=== PATIENT | female | born 1985 | race Caucasian/White ===

== ENCOUNTER 2016-11-05 17:10 | Emergency (ER) | payer BC, OTHER ==
[2016-11-05 17:19] VITALS: BP 136/95; PULSE 86; RESP 18; TEMP 98.2; O2SAT 99
[2016-11-05 18:06] LABS: BASO # 0.1 K/uL (0.0-0.2); EOS # 0.2 K/uL (0.0-0.7); EOS % 2.5 % (0.0-4.0); HEMATOCRIT 40.6 % (34.0-47.0); LYMPH # 2.7 K/uL (1.0-4.3); LYMPH % 27.1 % (20.0-40.0); MEAN CORPUSCULAR HEMOGLOBIN 30.8 pg (27.0-31.0); MEAN CORPUSCULAR HGB CONC 32.9 g/dL (33.0-37.0); MEAN PLATELET VOLUME 9.2 fl (7.2-11.7); MONO # 0.6 K/uL (0.0-0.8); MONO % 6.4 % (0.0-10.0); NEUT # 6.3 K/uL (1.8-7.0); NRBC % 0.1 % (0.0-0.0); RED CELL DISTRIBUTION WIDTH 12.8 % (11.5-14.5); WHITE BLOOD COUNT 9.9 K/uL (4.8-10.8)
[2016-11-05 18:09] LABS: MEAN CELL VOLUME 93.8 fl (81.0-99.0)
--- NOTE | 2016-11-05 18:09 | ED PDOC ---
HPI: General Adult Time Seen by Provider: 11/05/16 17:10 Chief Complaint (Nursing): Breast Problem Chief Complaint (Provider): Breast Problem History Per: Patient History/Exam Limitations: no limitations Onset/Duration Of Symptoms: Days (x2) Current Symptoms Are (Timing): Still Present Additional Complaint(s): Ailyn Archer is a 30 year old female with previous surgical history of silicon breast augmentation 4 years ago, who presents to the emergency department with a complaint of acute left breast swelling ongoing for 2 days. Denied redness, fever or chills. PMD: Claus Velásquez MD Past Medical History Reviewed: Historical Data, Nursing Documentation, Vital Signs Vital Signs: Last Vital Signs Temp 98.2 F 11/05/16 17:16 Pulse 86 11/05/16 17:16 Resp 18 11/05/16 17:16 BP 136/95 H 11/05/16 17:16 Pulse Ox 99 11/05/16 18:52 - Medical History PMH: Asthma - Surgical History Surgical History: Cholecystectomy - Family History Family History: States: No Known Family Hx - Social History Current smoker - smoking cessation education provided: No Alcohol: Occasional Drugs: Denies - Home Medications Home Medications: Ambulatory Orders Medication Instructions Recorded Albuterol HFA [Ventolin HFA 90 2 inh INH PRN PRN 07/28/14 mcg/actuation (8 g)] Amoxicillin/Clavulanate [Augmentin 1 tab PO BID #20 tab 07/28/14 875 MG-125 MG] Ciprofloxacin HCl/Dexameth 7.5 ml OT BID #1 felicitas 07/28/14 [Ciprodex 0.3%-0.1% 7.5 ml] Acetaminophen with Codeine 1 tab PO Q6 PRN #12 tab 08/21/14 [Tylenol with Codeine No. 3 300 mg-30 mg] Ciprofloxacin/Dexamethasone 4 drop TOP BID #1 bottle 08/21/14 [Ciprodex Otic] Ibuprofen [Motrin] 600 mg PO Q6H PRN #15 tab 08/21/14 - Allergies Allergies/Adverse Reactions: Allergies Allergy/AdvReac Type Severity Reaction Status Date / Time shellfish derived Allergy Mild RASH Verified 06/06/15 14:02 Review of Systems ROS Statement: Except As Marked, All Systems Reviewed And Found Negative Constitutional: Negative for: Fever, Chills Cardiovascular: Positive for: Edema (left breast). Negative for: Other (redness ) Physical Exam - Reviewed Nursing Documentation Reviewed: Yes - Physical Exam Appears: Positive for: Well, Non-toxic, No Acute Distress Head Exam: Positive for: ATRAUMATIC, NORMAL INSPECTION, NORMOCEPHALIC Cardiovascular/Chest: Positive for: Regular Rate, Rhythm, Edema (generalized moderate swelling/fullness to left breast). Negative for: Chest Non Tender, Other (erythema ) Respiratory: Positive for: Normal Breath Sounds. Negative for: Decreased Breath Sounds, Crackles, Rales, Rhonchi, Wheezing, Respiratory Distress Gastrointestinal/Abdominal: Positive for: Normal Exam, Bowel Sounds, Soft. 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 LOJA. Medical Decision Making Medical Decision Making: Initial Impression: Breast swelling Initial Plan: * BMP * CBC * US breast (left) Scribe Attestation: Documented by Rakel Glynn, acting as a scribe for Carlos Guadarrama PA-C. Provider Scribe Attestation: All medical record entries made by the Scribe were at my direction and personally dictated by me. I have reviewed the chart and agree that the record accurately reflects my personal performance of the history, physical exam, medical decision making, and the department course for this patient. I have also personally directed, reviewed, and agree with the discharge instructions and disposition. Disposition - Clinical Impression Clinical Impression: Breast swelling - Patient ED Disposition Is Patient to be Admitted: No - Disposition Referrals: Ap Rodriguez MD [Staff Provider] - Disposition: Routine/Home Disposition Time: 18:48 Condition: FAIR Instructions: Breast Self Exam for Women (ED) Forms: [employer] (Bahraini)
[2016-11-05 18:15] LABS: BLOOD UREA NITROGEN 11 mg/dl (7-17); CARBON DIOXIDE 26 mmol/L (22-30); CHLORIDE 104 mmol/L (98-107); GFR AFRICAN-AMERICAN > 60; GLUCOSE,RANDOM 89 mg/dL (65-105); SODIUM 141 mmol/l (132-148)
[2016-11-05 18:17] LABS: POTASSIUM 4.2 MMOL/L (3.6-5.0)
--- NOTE | 2016-11-06 09:11 | US ---
HISTORY: TECHNIQUE: Sonographic evaluation of both breast was performed. FINDINGS: LEFT BREAST: Cyst(s): None Breast mass: None Dilated ducts: None Parenchymal distortion: None Skin thickening or subcutaneous abnormalities: None Incompletely visualized saline implant. IMPRESSION: No sonographic evidence of malignancy. No evidence of breast mass or other infectious/ inflammatory findings. BIRADS: BIRADS 1 (negative) Recommendation: Patient management should be based on findings on physical examination in the absence of either ultrasound and/or mammographic correlate.
== END 2016-11-05 19:19 | disposition home or self-care (01) ==
LOC: H.ER 17:10
DX: N64.9 Disorder of breast, unspecified (principal)

== ENCOUNTER 2016-12-27 14:57 | Emergency (ER) | payer BC, OTHER ==
[2016-12-27 15:04] VITALS: BP 131/85; PULSE 90; RESP 18; TEMP 97.9; O2SAT 99
[2016-12-27] MEDS ORDERED: DiphenhydrAMINE 50 mg/ml Inj IVP STA (15:22)
[2016-12-27] MEDS ORDERED: Sodium Chloride 0.9% 1,000 ML IV STA (15:24)
--- NOTE | 2016-12-27 15:32 | ED PDOC ---
HPI: Allergic Reaction Time Seen by Provider: 12/27/16 15:12 Chief Complaint (Nursing): Allergic Reaction Chief Complaint (Provider): hives History Per: Patient Onset/Duration Of Symptoms: Days (5), Persistent Current Symptoms Are (Timing): Still Present Possible Cause: Unknown Associated Symptoms: Skin Rash, Swelling, Redness, Chest Pain Home/EMS Treatment: Benadryl, Steroids, H2 Blockers Additional Complaint(s): Rash to entire body. Started on LEFT foot Monday and progressed. Areas on buttocks most severe associated with burning and heat. Seen at [facility] and started on methylprednisone tapering pack, vistaril with no relief. Recently had bilateral breast implant removal, drains were removed on Monday. Reports taking pain rx'd medication that day but stopped since developing the rash. Also taking benadryl and pepcid. Visit building wrecker yesterday but told results of blood test unavailable for 2 weeks. No additional meds started by building wrecker PMD Dr Morris Past Medical History Reviewed: Historical Data, Nursing Documentation, Vital Signs Vital Signs: Last Vital Signs Temp 97.9 F 12/27/16 15:02 Pulse 90 12/27/16 15:02 Resp 18 12/27/16 15:02 BP 131/85 12/27/16 15:02 Pulse Ox 99 12/27/16 15:02 - Medical History PMH: Asthma - Surgical History Surgical History: Cholecystectomy Other surgeries: Breast augmentation, breast implant resection - Family History Family History: States: CAD, Hypertension, Other Other Family History: Thyroid cancer - Social History Current smoker - smoking cessation education provided: No - Home Medications Home Medications: Ambulatory Orders Medication Instructions Recorded Albuterol HFA [Ventolin HFA 90 2 inh INH PRN PRN 07/28/14 mcg/actuation (8 g)] Amoxicillin/Clavulanate [Augmentin 1 tab PO BID #20 tab 07/28/14 875 MG-125 MG] Ciprofloxacin HCl/Dexameth 7.5 ml OT BID #1 felicitas 07/28/14 [Ciprodex 0.3%-0.1% 7.5 ml] Acetaminophen with Codeine 1 tab PO Q6 PRN #12 tab 08/21/14 [Tylenol with Codeine No. 3 300 mg-30 mg] Ciprofloxacin/Dexamethasone 4 drop TOP BID #1 bottle 08/21/14 [Ciprodex Otic] Ibuprofen [Motrin] 600 mg PO Q6H PRN #15 tab 08/21/14 Famotidine [Pepcid] 40 mg PO DAILY PRN #14 tab 12/27/16 Fexofenadine HCl [FabioNf] 180 mg PO DAILY #14 tab 12/27/16 Montelukast [Singulair] 10 mg PO DAILY #14 tab 12/27/16 Prednisone 50 mg PO DAILY #4 tablet 12/27/16 - Allergies Allergies/Adverse Reactions: Allergies Allergy/AdvReac Type Severity Reaction Status Date / Time shellfish derived Allergy Mild RASH Verified 06/06/15 14:02 Review of Systems ROS Statement: Except As Marked, All Systems Reviewed And Found Negative (and as per HPI) Constitutional: Negative for: Fever, Chills Cardiovascular: Positive for: Chest Pain Respiratory: Negative for: Shortness of Breath Skin: Positive for: Rash Physical Exam - Reviewed Nursing Documentation Reviewed: Yes Vital Signs Reviewed: Yes - Physical Exam Appears: Positive for: Uncomfortable, In Acute Distress Head Exam: Positive for: ATRAUMATIC Skin: Positive for: Warm, Rash (multiple wheals to entire body, large areas of confluence on bilateraly buttocks) Eye Exam: Positive for: EOMI, PERRL ENT: Positive for: Pharynx Is (clear). Negative for: Tonsillar Exudate, Tonsillar Swelling Neck: Positive for: Painless ROM, Supple Cardiovascular/Chest: Positive for: Regular Rate, Rhythm. Negative for: Murmur Respiratory: Positive for: Normal Breath Sounds. Negative for: Wheezing, Respiratory Distress Gastrointestinal/Abdominal: Positive for: Soft. Negative for: Tenderness Back: Positive for: Normal Inspection. Negative for: Decreased ROM Extremity: Positive for: Normal ROM. Negative for: Deformity Lymphatic: Negative for: Adenopathy Neurologic/Psych: Positive for: Alert. Negative for: Motor/Sensory Deficits - Laboratory Results Result Diagrams: 12/27/16 16:00 12/27/16 16:00 - ECG O2 Sat by Pulse Oximetry: 99 Disposition - Clinical Impression Clinical Impression: Hives Counseled Patient/Family Regarding: Studies Performed, Diagnosis, Need For Followup, Rx Given - Disposition Referrals: [facility] [Outside] Disposition: Routine/Home Disposition Time: 18:00 Condition: IMPROVED Additional Instructions: FOLLOW UP WITH YOUR UMBRELLA FINISHER SCHEDULED. STOP TAKING METHYLPREDNISOLONE TABLETS. CONTINUE HYDROXYZINE PRESCRIBED. START FABIO, PEPCID, PREDNISONE AND SINGULAIR PRESCRIBED. Prescriptions: Famotidine [Pepcid] 40 mg PO DAILY PRN #14 tab PRN Reason: reflux Fexofenadine HCl [FabioNf] 180 mg PO DAILY #14 tab Montelukast [Singulair] 10 mg PO DAILY #14 tab Prednisone 50 mg PO DAILY #4 tablet Instructions: Urticaria (ED) Forms: [employer] (Wallisian)
[2016-12-27] MEDS ORDERED: DiphenhydrAMINE 50 mg/ml Inj ONE (15:57)
[2016-12-27 16:07] LABS: BASO % 0.3 % (0.0-2.0); HEMATOCRIT 36.7 % (34.0-47.0); LYMPH # 1.8 K/uL (1.0-4.3); MEAN CELL VOLUME 91.6 fl (81.0-99.0); MEAN CORPUSCULAR HEMOGLOBIN 30.4 pg (27.0-31.0); MEAN CORPUSCULAR HGB CONC 33.1 g/dL (33.0-37.0); MONO # 0.7 K/uL (0.0-0.8); MONO % 4.6 % (0.0-10.0); NEUT # 12.3 K/uL (1.8-7.0); NEUT % 83.1 % (50.0-75.0); WHITE BLOOD COUNT 14.8 K/uL (4.8-10.8)
[2016-12-27 16:35] LABS: ALB/GLOB RATIO 1.2 (1.0-2.1); ALKALINE PHOSPHATASE 82 U/L (38-126); ALT/SGPT 60 U/L (9-52); AST/SGOT 34 U/L (14-36); BILIRUBIN,TOTAL 0.2 mg/dl (0.2-1.3); BLOOD UREA NITROGEN 17 mg/dl (7-17); CALCIUM 8.9 mg/dL (8.4-10.2); CARBON DIOXIDE 26 mmol/L (22-30); CHLORIDE 105 mmol/L (98-107); GFR AFRICAN-AMERICAN > 60; GLUCOSE,RANDOM 108 mg/dL (65-105); PHOSPHOROUS 3.9 mg/dl (2.5-4.5); POTASSIUM 3.8 MMOL/L (3.6-5.0); SODIUM 143 mmol/l (132-148); TOTAL PROTEIN 7.7 G/DL (6.3-8.2)
[2016-12-27 16:48] LABS: PARTIAL THROMBOPLASTIN TIME 33.4 Seconds (25.6-37.1)
--- NOTE | 2016-12-27 17:21 | RAD ---
HISTORY: chest pain COMPARISON: 06/06/2015 TECHNIQUE: Chest PA and lateral FINDINGS: LUNGS: No active pulmonary disease. PLEURA: No significant pleural effusion identified. No pneumothorax apparent. CARDIOVASCULAR: Normal. OSSEOUS STRUCTURES: No significant abnormalities. VISUALIZED UPPER ABDOMEN: Normal. OTHER FINDINGS: None. IMPRESSION: No active disease. No significant interval change compared to the prior examination(s). Please note: No preliminary interpretation of this examination rendered by emergency department personnel (Physician and/or PA declined to provide preliminary report of their findings/ observations).
--- NOTE | 2016-12-28 12:57 | CARD ---
APPROVED REPORT EKG Measurement Heart [id number] <Conclusion> Normal sinus rhythm Normal ECG
== END 2016-12-27 18:20 | disposition home or self-care (01) ==
LOC: H.ER 14:57
DX: T78.40XA Allergy, unspecified, initial encounter (principal); L50.0 Allergic urticaria; J45.909 Unspecified asthma, uncomplicated; R07.89 Other chest pain
CPT/HCPCS: 71020; 80053; 81025; 82550; 83605; 83735; 84100; 85025; 85610; 85730; 87040; 93005; 96374; 96375; 99283; J1200; J2930; J7040

== ENCOUNTER 2017-03-20 23:09 | Emergency (ER) | payer BC, OTHER ==
[2017-03-20 23:14] VITALS: TEMP 98.9; O2SAT 100
[2017-03-21] MEDS ORDERED: Sodium Chloride 0.9% 500 ML IV STA (00:10)
--- NOTE | 2017-03-21 00:15 | ED PDOC ---
HPI: Headache Time Seen by Provider: 03/21/17 00:12 Chief Complaint (Nursing): Headache Chief Complaint (Provider): headache History Per: Patient History/Exam Limitations: no limitations Onset/Duration Of Symptoms: Hrs Current Symptoms Are (Timing): Still Present Quality: "Pain" Additional History Per: Patient Additional Complaint(s): 31 y/o female presents with headache x 3 hours. Patient states she checked her blood pressure at that time and it was 157/109. Patient states she then started developing palpitations, which prompted her to call 911. Denies fever, dizziness, vision changes, extremity numbness/weakness, chest pain, shortness of breath, nausea/vomiting, abdominal pain, leg pain/swelling, recent travel, sick contacts. Past Medical History Reviewed: Historical Data, Nursing Documentation, Vital Signs Vital Signs: Last Vital Signs Temp 98.9 F 03/20/17 23:10 Pulse 95 H 03/21/17 00:08 Resp 13 03/21/17 00:08 BP 166/77 H 03/21/17 00:08 Pulse Ox 100 03/21/17 00:08 - Medical History PMH: Asthma, Hyperthyroidism - Surgical History Surgical History: Cholecystectomy - Family History Family History: States: CAD, Hypertension - Social History Current smoker - smoking cessation education provided: No - Home Medications Home Medications: Ambulatory Orders Medication Instructions Recorded Albuterol HFA [Ventolin HFA 90 2 inh INH PRN PRN 07/28/14 mcg/actuation (8 g)] Amoxicillin/Clavulanate [Augmentin 1 tab PO BID #20 tab 07/28/14 875 MG-125 MG] Ciprofloxacin HCl/Dexameth 7.5 ml OT BID #1 felicitas 07/28/14 [Ciprodex 0.3%-0.1% 7.5 ml] Acetaminophen with Codeine 1 tab PO Q6 PRN #12 tab 08/21/14 [Tylenol with Codeine No. 3 300 mg-30 mg] Ciprofloxacin/Dexamethasone 4 drop TOP BID #1 bottle 08/21/14 [Ciprodex Otic] Ibuprofen [Motrin] 600 mg PO Q6H PRN #15 tab 08/21/14 Famotidine [Pepcid] 40 mg PO DAILY PRN #14 tab 12/27/16 Fexofenadine HCl [NgaNf] 180 mg PO DAILY #14 tab 12/27/16 Montelukast [Singulair] 10 mg PO DAILY #14 tab 12/27/16 Prednisone 50 mg PO DAILY #4 tablet 12/27/16 - Allergies Allergies/Adverse Reactions: Allergies Allergy/AdvReac Type Severity Reaction Status Date / Time shellfish derived Allergy Mild RASH Verified 06/06/15 14:02 Review of Systems ROS Statement: Except As Marked, All Systems Reviewed And Found Negative Cardiovascular: Positive for: Palpitations Neurological: Positive for: Headache Physical Exam - Reviewed Nursing Documentation Reviewed: Yes Vital Signs Reviewed: Yes - Physical Exam Appears: Positive for: Well, Non-toxic, No Acute Distress Head Exam: Positive for: ATRAUMATIC, NORMAL INSPECTION, NORMOCEPHALIC Skin: Positive for: Normal Color Eye Exam: Positive for: Normal appearance, EOMI, PERRL ENT: Positive for: Normal ENT Inspection Cardiovascular/Chest: Positive for: Regular Rate, Rhythm Respiratory: Positive for: Normal Breath Sounds Gastrointestinal/Abdominal: Positive for: Normal Exam Back: Positive for: Normal Inspection Extremity: Positive for: Normal ROM Neurologic/Psych: Positive for: Alert, Oriented - Laboratory Results Result Diagrams: 03/21/17 01:15 03/21/17 01:15 - ECG ECG: Positive for: Viewed By Me (reviewed by ED attending) ECG Rhythm: Positive for: Sinus Rhythm O2 Sat by Pulse Oximetry: 100 - Progress ED Course And Treament: labs, ekg, CT head, Tylenol PO EXAM: CT Head Without Intravenous Contrast CLINICAL HISTORY: 31 years old, female; Pain; Headache TECHNIQUE: Axial computed tomography images of the head/brain without intravenous contrast. All CT scans at this facility use one or more dose reduction techniques, viz.: automated exposure control; ma/kV adjustment per patient size (including targeted exams where dose is matched to indication; i.e. head); or iterative reconstruction technique. Coronal and sagittal reformatted images were created and reviewed. COMPARISON: No relevant prior studies available. FINDINGS: Brain: Unremarkable. No hemorrhage. No significant white matter disease. No edema. Ventricles: Unremarkable. No ventriculomegaly. Bones/joints: Unremarkable. No acute fracture. Soft tissues: Unremarkable. Sinuses: Unremarkable as visualized. No acute sinusitis. Mastoid air cells: Unremarkable as visualized. No mastoid effusion. IMPRESSION: No evidence of an acute intracranial abnormality. On re-eval, patient states she is feeling better. Patient educated on findings, discharged with instructions to follow up PMD 2-3 days. Tylenol/Ibuprofen PRN pain. Return precautions given. Disposition - Clinical Impression Clinical Impression: Headache, Palpitations - Patient ED Disposition Is Patient to be Admitted: No Counseled Patient/Family Regarding: Studies Performed, Diagnosis, Need For Followup - Disposition Disposition: Routine/Home Disposition Time: 03:03 Condition: IMPROVED Instructions: Palpitations (ED), Acute Headache (ED) Forms: [employer] (Bulgarian)
[2017-03-21 01:17] LABS: BASO # 0.1 K/uL (0.0-0.2); BASO % 0.9 % (0.0-2.0); EOS # 0.2 K/uL (0.0-0.7); EOS % 1.6 % (0.0-4.0); HEMOGLOBIN 13.3 g/dL (12.0-16.0); LYMPH # 2.8 K/uL (1.0-4.3); MEAN CELL VOLUME 90.9 fl (81.0-99.0); MEAN CORPUSCULAR HEMOGLOBIN 29.9 pg (27.0-31.0); MEAN PLATELET VOLUME 8.5 fl (7.2-11.7); MONO # 0.5 K/uL (0.0-0.8); MONO % 5.1 % (0.0-10.0); NEUT # 7.1 K/uL (1.8-7.0); NEUT % 66.4 % (50.0-75.0); NRBC % 0.1 % (0.0-0.0); RBC 4.44 Mil/uL (3.80-5.20); RED CELL DISTRIBUTION WIDTH 13.3 % (11.5-14.5); WHITE BLOOD COUNT 10.6 K/uL (4.8-10.8)
[2017-03-21 01:25] LABS: ALBUMIN 4.8 g/dL (3.5-5.0); ALT/SGPT 59 U/L (9-52); AST/SGOT 32 U/L (14-36); BLOOD UREA NITROGEN 11 mg/dl (7-17); CALCIUM 9.7 mg/dL (8.4-10.2); GFR AFRICAN-AMERICAN > 60; GFR NON-AFRICAN AMERICAN > 60
[2017-03-21 01:31] LABS: ALB/GLOB RATIO 1.2 (1.0-2.1)
[2017-03-21 02:59] VITALS: PULSE 86
[2017-03-21 03:48] VITALS: BP 122/58; RESP 15
--- NOTE | 2017-03-21 09:29 | CT ---
PROCEDURE: CT HEAD WITHOUT CONTRAST. HISTORY: headache COMPARISON: None available. TECHNIQUE: Axial computed tomography images were obtained through the head/brain without intravenous contrast. Radiation dose: Total exam DLP = pacs 849.75 mGy-cm. This CT exam was performed using one or more of the following dose reduction techniques: Automated exposure control, adjustment of the mA and/or kV according to patient size, and/or use of iterative reconstruction technique. FINDINGS: HEMORRHAGE: No intracranial hemorrhage. BRAIN: No mass effect or edema. No atrophy or chronic microvascular ischemic changes. VENTRICLES: Unremarkable. No hydrocephalus. CALVARIUM: Unremarkable. PARANASAL SINUSES: Unremarkable as visualized. No significant inflammatory changes. MASTOID AIR CELLS: Unremarkable as visualized. No inflammatory changes. OTHER FINDINGS: None. IMPRESSION: No acute intracranial abnormalities. No significant findings to account for the clinical presentation. Concordant results (preliminary interpretation) provided by [facility]. Procedure Completed: 00:32 Preliminary ([facility]) Report: Dictated and Authenticated: 00:52 Final Interpretation: 09:27 2017.
--- NOTE | 2017-03-22 11:20 | CARD ---
APPROVED REPORT EKG Measurement Heart [id number] <Conclusion> Normal sinus rhythm Possible Left atrial enlargement Borderline ECG
== END 2017-03-21 04:16 | disposition home or self-care (01) ==
LOC: H.ER 23:09
DX: R00.2 Palpitations (principal); R51 Headache; E05.90 Thyrotoxicosis, unspecified without thyrotoxic crisis or storm; J45.909 Unspecified asthma, uncomplicated; Z82.49 Family history of ischemic heart disease and other diseases of the circulatory system
CPT/HCPCS: 70450; 80053; 84443; 84484; 85025; 93005; 99285; J7040

== ENCOUNTER 2018-04-10 19:48 | Emergency (ER) | payer BC, OTHER ==
--- NOTE | 2018-04-10 20:15 | ED PDOC ---
HPI: Influenza Time Seen by Provider: 04/10/18 20:04 Chief Complaint: Flu-like Symptoms Chief Complaint (Provider): Flu-like Symptoms History Per: Patient Exam Limitations: no limitations Onset/Duration Of Symptoms: Days (x1) Additional complaint(s):: 32 year old female presents to the ED for evaluation of a tactile fever, cough, throat pain, congestion, and body aches which started last night and worsened today. Yesterday she reports taking Motrin with no relief, and subsequently did not take any further doses today. Otherwise denies nausea, vomiting, abdominal pain, urinary symptoms, ear pain, neck pain/stiffness, and sick contacts. LNMP: not regular due to IUD placement PMD: Luis Daniel Griffin Past Medical History Reviewed: Historical Data, Nursing Documentation, Vital Signs Vital Signs: Last Vital Signs Temp 98.4 F 04/10/18 19:59 Pulse 97 H 04/10/18 19:59 Resp 16 04/10/18 19:59 BP 125/86 04/10/18 19:59 Pulse Ox 99 04/10/18 19:59 - Medical History PMH: Asthma, Hyperthyroidism - Surgical History Surgical History: Cholecystectomy Other surgeries: breast implants and removal; knee surgery; tummy tuck - Family History Family History: States: CAD, Hypertension - Home Medications Home Medications: Ambulatory Orders Medication Instructions Recorded Amoxicillin/Clavulanate [Augmentin 1 tab PO BID #20 tab 07/28/14 875 MG-125 MG] Ciprofloxacin HCl/Dexameth 7.5 ml OT BID #1 felicitas 07/28/14 [Ciprodex 0.3%-0.1% 7.5 ml] RX: Albuterol HFA [Ventolin HFA 90 2 inh INH PRN PRN 07/28/14 mcg/actuation (8 g)] Acetaminophen with Codeine 1 tab PO Q6 PRN #12 tab 08/21/14 [Tylenol with Codeine No. 3 300 mg-30 mg] Ciprofloxacin/Dexamethasone 4 drop TOP BID #1 bottle 08/21/14 [Ciprodex Otic] Ibuprofen [Motrin] 600 mg PO Q6H PRN #15 tab 08/21/14 Famotidine [Pepcid] 40 mg PO DAILY PRN #14 tab 12/27/16 Fexofenadine HCl [NgaNf] 180 mg PO DAILY #14 tab 10/31/17 Montelukast [Singulair] 10 mg PO DAILY #14 tab 12/27/16 RX: Prednisone 50 mg PO DAILY #4 tablet 12/27/16 Acetaminophen [Acetaminophen 8 650 mg PO Q8 PRN #21 tablet.er 04/10/18 Hour] Albuterol Sulfate [Ventolin Hfa] 1 puff IH Q4 PRN #1 unit 04/10/18 Oseltamivir Phosphate [Tamiflu] 75 mg PO BID #10 capsule 04/10/18 RX: Naproxen 500 mg PO BID PRN #20 tab 04/10/18 RX: Promethazine DM [Phenergan DM 5 ml PO Q6 PRN #150 ml 04/10/18 Syrup] - Allergies Allergies/Adverse Reactions: Allergies Allergy/AdvReac Type Severity Reaction Status Date / Time shellfish derived Allergy Mild RASH Verified 06/06/15 14:02 Review of Systems ROS Statement: Except As Marked, All Systems Reviewed And Found Negative Constitutional: Positive for: Fever (tactile), Other (body aches) ENT: Positive for: Nose Congestion, Throat Pain Respiratory: Positive for: Cough Gastrointestinal: Negative for: Nausea, Vomiting Physical Exam - Reviewed Nursing Documentation Reviewed: Yes Vital Signs Reviewed: Yes - Physical Exam Comments: GENERAL APPEARANCE: Patient is awake, alert, oriented x 3, in no acute distress. Resting comfortably. SKIN: Warm, dry; (-) cyanosis, (-) rash EYES: (-) conjunctival pallor, (-) scleral icterus, (-) conjunctival hemorrhage. ENMT: Mucous membranes moist. TMs: (-) erythema (-) bulging. Airway patent: (-) stridor. Pharynx: clear, uvula midline (-) erythema, (-) exudate. Airway patent, (-) stridor. NECK: Supple, FROM (-) tenderness, (-) stiffness, (-) meningismus, (-) lymphadenopathy. ABDOMEN AND GI: Soft; (-) tenderness, (-) guarding EXTREMITIES: (-) deformity NEURO AND PSYCH: Mental status as above; (-) focal findings. Gait: steady. Speech: clear. (-) facial asymmetry Medical Decision Making Medical Decision Making: Initial Impression: cough, body aches, probable influenza Time: 1999 Initial Plan: --EKG --Duoneb 3ml INH --Phenergan DM syrup 5ml PO --Tamiflu 75mg PO --Tylenol 650mg PO --Reevaluation Likely diagnosis of flu discussed with patient. Advised that symptoms have been ongoing for one day, and therefore patient is in the therapeutic window to give Tamiflu. Encouraged symptomatic treatment with intake of fluids, bed rest, Motrin and Tylenol. EKG: NSR at 86 bpm, (-) acute ST changes; QTc at 416, as read by LENA [id number] On re-evaluation, patient reports improvement of symptoms. On exam, patient remains AAOx3, in no acute distress. Vitals stable. Lab/Diagnostic results d/w the patient in great detail. Diagnosis of cough, body aches, probable influenza d/w the patient. Based on history, exam and diagnostic results, plan will be for outpatient follow up with clinic. Patient instructed to follow-up with pmd / referral provided / the clinic in 1- 2 days without fail. Advised to take medication as prescribed. Return to the emergency room at any time for any new or worsening symptoms. Patient states she fully agrees with and understands discharge instructions. States that she agrees with the plan and disposition. Verbalized and repeated discharge instructions and plan. I have given the patient opportunity to ask any additional questions. Scribe Attestation: Documented by Velia Overton, acting as a scribe for Amanda Brooks PA-C. Provider Scribe Attestation: All medical record entries made by the Scribe were at my direction and personally dictated by me. I have reviewed the chart and agree that the record accurately reflects my personal performance of the history, physical exam, medical decision making, and the department course for this patient. I have also personally directed, reviewed, and agree with the discharge instructions and disposition. - ECG O2 Sat by Pulse Oximetry: 99 (RA) Pulse Ox Interpretation: Normal Disposition - Clinical Impression Clinical Impression: Cough in adult, Body aches, Influenza - Patient ED Disposition Is Patient to be Admitted: No Counseled Patient/Family Regarding: Studies Performed, Diagnosis, Need For Followup, Rx Given - Disposition [facility]errals[facility] [Outside] Disposition: Routine/Home Disposition Time: 21:25 Condition: STABLE Additional Instructions: The emergency medical care you received today was directed at your acute symptoms. If you were prescribed any medication, please fill it and take as directed. It may take several days for your symptoms to resolve. Return to the Emergency Department if your symptoms worsen, do not improve, or if you have any other problems. Please contact your doctor in 2 days for re-evaluation and follow up / or call one of the physicians/clinics you have been referred to that are listed on the Patient Visit Information form that is included in your discharge packet. Bring any paperwork you were given at discharge with you along with any medications you are taking to your follow up visit. Our treatment cannot replace ongoing medical care by a primary care provider (PCP) outside of the emergency department. Prescriptions: Acetaminophen [Acetaminophen 8 Hour] 650 mg PO Q8 PRN #21 tablet.er PRN Reason: pain/fever Albuterol Sulfate [Ventolin Hfa] 1 puff IH Q4 PRN #1 unit PRN Reason: Shortness Of Breath RX: Naproxen 500 mg PO BID PRN #20 tab PRN Reason: Pain, Moderate (4-7) Oseltamivir Phosphate [Tamiflu] 75 mg PO BID #10 capsule RX: Promethazine DM [Phenergan DM Syrup] 5 ml PO Q6 PRN #150 ml PRN Reason: Cough Instructions: Cough in Adults, Flu, Adult (DC), Muscle and Bone Pain (DC) Forms: [employer] (Faroese) Print Language: LUXEMBOURGER - POA Present On Arrival: None
[2018-04-10] MEDS: Albuterol-Ipratrop 3 mg / 0.5 (3 ml) UD INH STA (20:30)
[2018-04-10] MEDS: Promethazine DM 6.25 mg-15 mg/5 ml Syrup PO STA (21:21)
[2018-04-10] MEDS ORDERED: Promethazine DM 6.25 mg-15 mg/5 ml Syrup ONE (21:22)
[2018-04-10 21:25] VITALS: BP 117/77; PULSE 65; TEMP 98.2
[2018-04-10 21:27] VITALS: RESP 16
[2018-04-10 21:44] VITALS: O2SAT 99
--- NOTE | 2018-04-11 10:02 | CARD ---
APPROVED REPORT Date of service: 04/10/2018 EKG Measurement Heart [id number] <Conclusion> Normal sinus rhythm Normal ECG
== END 2018-04-10 21:48 | disposition home or self-care (01) ==
LOC: H.ER 19:48
DX: J11.1 Influenza due to unidentified influenza virus with other respiratory manifestations (principal); R05 Cough; M79.18 Myalgia, other site; E05.90 Thyrotoxicosis, unspecified without thyrotoxic crisis or storm; Z79.899 Other long term (current) drug therapy